=== PATIENT | female | born 1950 | race Caucasian/White ===

== ENCOUNTER → 2017-02-21 | Outpatient (CLI) | payer OTHER ==
[~2017-02-21] MED LIST: AMBIEN10 MG PO; CALCIUM 1,2001 EACH PO; CHLORTHALIDONE25 MG; COZAAR100 MG; DITROPAN; DULERA 100 MCG/13 GM IH; FLEXERIL10 MG PO; FLUOXETINE HCL20 M1; FOLIC ACID1 MG; HYTRIN10 MG PO; KLONOPIN PO; LEVOTHYROXINE100 MC1; MACRODANTIN PO; METHOTREXA2.5 MG/DOS; METHOTREXATE1 G1; NEURONTIN300 MG; NITROFURANTOIN100 M3; NORVASC10 MG; PREMARIN VAG CR45 GM MC; SINGULAIR PO; VITAMIN D50000 UNIT PO
--- NOTE | ~2017-02-21 | ST ---
Unit #: [id number] #: [id number] Patient: JO-ANN QUINONES [id number] [facility]. [address] [place], [place] [address] [id number] O MR#: [id number] NAME: JO-ANN QUINONES : 1950 SEX: F STUDY DATE/TIME: 02/21/2017 UNIT: CNIV ROOM: STUDY DESCRIPTION: Lexiscan stress test Attending Physician: Jeffry Lu M.D. Referring Physician: Jeffry Lu M.D. Primary Care Physician: Abdullahi Mckeon M.D. CARDIOLOGY REPORT PROCEDURE PERFORMED Lexiscan Cardiolite stress test. REPORT Baseline EKG - Normal sinus bradycardia, heart rate 56 beats per minute, mild left atrial abnormality. Lexiscan is a 4-minute test with Lexiscan being injected within the first minute, followed by Cardiolite. FINDINGS 1. EKG during the test showed some T wave inversion in inferolateral lead with 0.[address] depression in lateral lead. 2. Patient had no complaints of chest pain, palpitations or dizziness. Had increased shortness of breath and "fatigueness," which resolved in recovery phase. 3. EKG normalized at the end of recovery phase. 4. Maximum heart rate response was 89 beats per minute with a maximum blood pressure response of 188/77 mmHg. 5. Cardiolite was injected after Lexiscan within the first minute of the test. Radionuclide tests pending. Please correlate with nuclear images. Dictated by... Kevin NavaPAltagraciaRAltagraciaNAltagracia for Kailey Jain/vikash TD: 02/21/2017 11:34 JOB #: [id number] CC: Ken Cruz M.D. Unit #: [id number] #: [id number] Patient: JO-ANN QUINONES CARDIOLOGY REPORT Page 1 of 1 X Lindsey Torres APRN CARDIOLOGY REPORT
--- NOTE | ~2017-02-21 | TH ---
Unit #: [id number] #: [id number] Patient: JO-ANN QUINONES [id number] [facility] [place]. [id number] [facility]. [place], [place] [address] [id number] O MR#: [id number] NAME: JO-ANN QUINONES : 1950 SEX: F STUDY DATE/TIME: UNIT: CNIV ROOM: STUDY DESCRIPTION: Nuclear Study Attending Physician: Jeffry Lu M.D. Referring Physician: Jeffry Lu M.D. Primary Care Physician: Abdullahi Mckeon M.D. CARDIOLOGY REPORT EXAM Lexiscan Cardiolite Stress Test - Nuclear Portion PROCEDURE Using technetium 99m labeled Cardiolite, rest and stress SPECT images were obtained. Multiple SPECT images were obtained in various views including horizontal and vertical long axis and short axis views of the left ventricle. Images were obtained by gated SPECT method. Patient was administered 11.2 mCi of Cardiolite at rest. Patient was administered 31.7 mCi of Cardiolite after Lexiscan infusion was completed. On the stress images there is a small area of mild decreased isotope activity in the anteroapical wall. The rest images show normal perfusion. Comparing rest and stress images, a small area of stress-induced ischemia involving the anteroapical wall of the left ventricle cannot be ruled out. The left ventricular ejection fraction is calculated to be 72%. There is no focal wall motion abnormality seen. CONCLUSION 1. A small area of possible stress-induced ischemia involving the anteroapical wall of the left ventricle cannot be ruled out. 2. The left ventricular ejection fraction is calculated to be 72%. 3. There is no focal wall motion abnormality seen. 4. Technically limited study due to patient's body habitus and also increased gut uptake noted only on the stress images. Clinical correlation is requested. Dictated by... Kailey Jain TD: 02/22/2017 06:51 JOB #: [id number] Unit #: [id number] #: [id number] Patient: JO-ANN QUINONES CARDIOLOGY REPORT Page 1 of 1 X Leighann Birmingham MD CARDIOLOGY REPORT
--- NOTE | ~2017-02-21 | US37 ---
[facility] A Service of [facility] & [facility] RADIOLOGY TEXT RESULTS PATIENT: JO-ANN QUINONES LOCATION: CNIV : 54 UNIT #: [id number] AGE: [address]: Jeffry Lu MD SEX: F ORDER DR: [id number] [facility] [address] [place], [place] [address] [id number] O MR#: [id number] Acc #: [id number] NAME: JO-ANN QUINONES : 1950 SEX: F STUDY DATE/TIME: 02/21/2017 8:37 UNIT: CNIV ROOM: STUDY DESCRIPTION: US Carotid W/Doppler Bilateral Attending Physician: Jeffry Lu M.D. Referring Physician: Jeffry Lu M.D. Ordering Physician: Jeffry Lu M.D. Primary Care Physician: Abdullahi Mckeon M.D. MEDICAL IMAGING REPORT This report is preliminary unless electronic signature is present EXAM Bilateral carotid duplex, 02/21/2017 HISTORY Carotid bruit. FINDINGS There is patent flow seen throughout the right common carotid, internal carotid and external carotid arteries. At the distal right common carotid artery, as well as carotid bifurcation, internal and external carotid arteries, there is some diffuse, heterogeneous, irregular, and echogenic plaque. The right common carotid artery peak velocity is 106 cm/sec. The right internal carotid artery peak systolic over end-diastolic velocities are: proximal 100/19 cm/sec, mid 79/16 cm/sec, distal 62/17 cm/sec. The right external carotid artery has a peak velocity of 143 cm/sec, vertebral artery 46 cm/sec. The right ICA/CCA ratio is 0.9. There is patent flow seen throughout the left common carotid, internal carotid and external carotid arteries. At the left common carotid artery there is a focal area of homogeneous and echogenic plaque. There is also some irregular, focal, heterogeneous, and echogenic plaque seen in the left carotid bifurcation, as well as the internal and external carotid arteries. The left common carotid artery peak velocity is 117 cm/sec. The left internal carotid artery peak systolic over end-diastolic velocities are: proximal 95/21 cm/sec, mid 81/29 cm/sec, distal 105/37 cm/sec. The left external carotid artery peak velocity is 168 cm/sec, vertebral artery 72 cm/sec. The left ICA/CCA ratio is 0.9. IMPRESSION 1. The right carotid artery has mild atherosclerosis, which is not hemodynamically significant by duplex criteria (less than 50%). 2. The left carotid artery has mild atherosclerosis, which is not STS. [facility] A Service of [facility] RADIOLOGY TEXT RESULTS PATIENT: JO-ANN QUINONES LOCATION: CNIV : 54 UNIT #: [id number] AGE: [address]: Jeffry Lu MD SEX: F ORDER DR: hemodynamically significant by duplex criteria (less than 50%). 3. Vertebral flows antegrade bilaterally. Dictated by... Harinder Meeks M.D. THIS IS AN ELECTRONICALLY VERIFIED REPORT Harinder Meeks M.D. at 02/22/2017 5:23 PM [place] TD: 02/21/2017 12:00 JOB #: [id number] MEDICAL IMAGING REPORT Page 1 of 1 COPY
== END | disposition home or self-care (01) ==
LOC: CNIV 08:00 → CNUC 09:00
DX: R09.89 Other specified symptoms and signs involving the circulatory and respiratory systems (principal); R07.89 Other chest pain; I10 Essential (primary) hypertension; I65.23 Occlusion and stenosis of bilateral carotid arteries
CPT/HCPCS: 78452; 93017; 93880; A9500; J2785